=== PATIENT | male | born 1965 ===

== ENCOUNTER 2020-10-09 06:54 | Outpatient (REF) | payer OTHER, SELFPAY | END 2020-10-09 06:55 | disposition home or self-care (01) | LOC: HO.LAB 06:54 | PROVIDERS: Visit Provider Internal Medicine | DX: Z20.828 Contact with and (suspected) exposure to other viral communicable diseases (principal) | CPT/HCPCS: C9803; U0003 ==

== ENCOUNTER → 2021-10-16 09:22 | Outpatient (BNVA) | payer OTHER, SELFPAY | PROVIDERS: Visit Provider Physician Assistant | DX: M76.62 Achilles tendinitis, left leg (principal) | CPT/HCPCS: 73610; 99203 ==

== ENCOUNTER → 2021-10-24 09:58 | Outpatient (BNVA) | payer OTHER, SELFPAY | PROVIDERS: Visit Provider Physician Assistant | DX: S86.012A Strain of left Achilles tendon, initial encounter (principal); X58.XXXA Exposure to other specified factors, initial encounter | CPT/HCPCS: 99213 ==

== ENCOUNTER → 2021-10-30 10:42 | Outpatient (BNVA) | payer OTHER, SELFPAY | PROVIDERS: Visit Provider Physician Assistant | DX: S86.012A Strain of left Achilles tendon, initial encounter (principal); X58.XXXA Exposure to other specified factors, initial encounter | CPT/HCPCS: 99213 ==

== ENCOUNTER 2021-11-05 08:03 | Outpatient (REF) | payer OTHER, SELFPAY ==
--- NOTE | ~2021-11-05 | MR_ITS ---
EXAMINATION: MRI ANKLE WITHOUT CONTRAST, LEFT CLINICAL INFORMATION: Old left Achilles, pain, improvement. Rule out tear. COMPARISON: X-rays 10/16/2021 TECHNIQUE: MRI of the ankle without contrast is performed in a 1.5 [employer]ana high-field scanner. FINDINGS: ACHILLES TENDON: There is mild T2 signal in the distal Achilles tendon, suggesting mild tendinosis. There may be a thin linear longitudinal propagating interstitial tear in the central aspect of the tendon. Possible additional small interstitial tears in the distal tendon. No full-thickness tear is seen. There is mild peritendinitis distally.. Small retrocalcaneal bursitis. Mild edema in the posterior calcaneus. BONE/JOINTS: No evidence of fracture. No talar dome osteochondral lesion seen. MUSCLES/TENDONS: Mild T2 signal in the distal posterior tibial tendon may reflect mild tendinosis. Physiological fluid versus mild tenosynovitis of the posterior tibial tendon. The flexor tendons otherwise are intact. Peroneal, extensor tendons are intact. LIGAMENTS: Grade 2 sprain ATFL. Sprain posterior talofibular ligament. Tibiofibular, calcaneofibular ligaments intact. Mild heterogeneous signal in the deep fibers deltoid ligament could represent sprain. PLANTAR FASCIA: Intact. SINUS TARSI: Normal signal. TARSAL TUNNEL : No mass lesion SUBCUTANEOUS SOFT TISSUES: Mild lateral subcutaneous edema.. MR/MR ankle LT wo con IMPRESSION: 1. Findings suggest mild tendinosis of the distal Achilles tendon with mild peritendinitis. Possible thin linear longitudinal propagating interstitial tear in the distal tendon, with question of additional small interstitial tear distally. Small retrocalcaneal bursitis. Mild edema in the posterior calcaneus. 2. Possible mild distal posterior tibial tendinosis with physiological fluid versus mild tenosynovitis. 3. Grade 2 sprain ATFL. Sprain posterior talofibular ligament. Possible sprain deep fibers deltoid ligament.
== END 2021-11-05 08:04 | disposition home or self-care (01) ==
LOC: HO.MRI 08:03
PROVIDERS: Visit Provider Internal Medicine
DX: M25.572 Pain in left ankle and joints of left foot (principal)
CPT/HCPCS: 73721

== ENCOUNTER 2024-09-12 08:30 | Emergency (ER) | payer BC, SELFPAY ==
--- NOTE | ~2024-09-12 | US_ITS ---
EXAMINATION: US TRIPLEX LOWER EXTREMITY, LEFT CLINICAL INFORMATION: Swelling and pain COMPARISON: None available. TECHNIQUE: Color-flow triplex imaging with spectral analysis and compression Doppler were performed on the left lower extremity. FINDINGS: Respiratory variation, normal compression and augmented flow are noted throughout the left lower extremity. The visualized common femoral vein, superficial femoral vein, profunda femoral vein, popliteal vein and midcalf peroneal and posterior tibial venous segments show no evidence of deep venous thrombosis. There is some calf edema noted. There is a left inguinal noted 21 x 6 x 7 mm. There is no Hensley's cyst. US/US venous duplex LE LT IMPRESSION: No evidence of deep venous thrombosis involving the left lower extremity. Electronically signed by: Dustin Cunningham MD 09/12/2024 11:18 AM [facility]
[2024-09-12 08:40] VITALS: BP 147/85; PULSE 70; RESP 18; TEMP 36.6; O2SAT 99; BMI 25.1
[2024-09-12 09:03] LABS: MANUAL DIFF FLAG NO
[2024-09-12 09:04] LABS: Basophils Percent Auto 0.4 % (0-2); Eosinophils Absolute Auto 0.3 X10*3/uL (0.0-0.4); Eosinophils Percent Auto 3.7 % (0-4); Hematocrit 38.1 % (42.0-52.0); Hemoglobin 13.2 g/dl (14.0-18.0); Imm Gran Abs Auto 0.02 X10*3/uL (0.00-0.03); Imm Gran Pct Auto 0.3 % (0.0-0.4); Lymphocytes Absolute Auto 1.6 X10*3/uL (1.2-4.9); Lymphocytes Percent Auto 23.2 % (20-40); Mean Corpuscular HGB Conc 34.6 g/dl (31.0-36.0); Mean Corpuscular Hemoglobin 32.2 pg (27.0-33.0); Mean Corpuscular Volume 92.9 fL (80.0-98.0); Mean Platelet Volume 9.5 fL (9.4-12.4); Monocytes Absolute Auto 0.8 X10*3/uL (0.1-1.2); Monocytes Percent Auto 11.4 % (2-11); Neutrophils Absolute Auto 4.1 x10*3/uL (2.0-8.3); Platelet Count 255 X10*3/uL (160-400); Red Cell Distribution Width 14.6 % (11.0-16.0); White Blood Count 6.8 X10*3/uL (4.8-10.8)
[2024-09-12 09:10] LABS: Prothrombin Time 11.5 SEC (10.9-12.4)
[2024-09-12 09:25] LABS: Alanine Aminotransferase 102 U/L (0-40); Albumin Level 4.1 g/dL (3.5-5.0); Alkaline Phosphatase 44 U/L (39-117); Anion Gap 10 (12-20); Aspartate Amino Transferase 102 U/L (5-37); Bilirubin Total 0.8 mg/dL (0.0-1.0); Blood Urea Nitrogen 20 mg/dL (9-16); Calcium 9.5 mg/dL (8.4-10.2); Carbon Dioxide 30 mmol/L (22-29); Chloride 101 mmol/L (96-108); Creatinine Clr Calc Pharmacy 84.2; Estimated Glomerular Filt Rate > 60; Glucose Random 90 mg/dL (60-115); Potassium 4.4 mmol/L (3.3-5.1); Sodium 137 mmol/L (135-145); Total Protein 7.3 g/dL (6.5-8.0)
--- NOTE | 2024-09-12 09:32 | ED.LOWEXIN ---
HPI - Extremity Injury (Lower) General Chief Complaint: Extremity Injury, Lower Stated Complaint: Swelling/bruising L leg Time Seen by Provider: 09/12/24 09:16 Source: patient Mode of arrival: ambulatory Limitations: no limitations History of Present Illness ED Provider: JENNI SHEN PA-C HPI Narrative: 59 year old male with no significant past medical history presents to the ED today for evaluation of pain and swelling to his LLE x2-3 weeks. States a few days ago he was walking down the stairs and felt a pop to the outside of his left knee. Denies any blunt trauma or injury to the leg/ knee. Admits to history of spider veins in the LLE. He is not on anticoagulation. Denies recent travel or long car rides. Denies personal history of VTE. Admits his mother has history of VTE and heart issues . Denies fever, chills, chest pain, palpitations, sob, dyspnea, cough, hemoptysis. Related Data Previous Rx's ?Medication ?Instructions ?Recorded compr.stocking,knee,long,large #12 ea 09/12/24 Allergies Allergy/AdvReac Type Severity Reaction Status Date / Time No Known Allergies Allergy Verified 09/12/24 08:42 [No Known Allergies*] Review of Systems Review of Systems: Constitutional: No fever, chills, fatigue, night sweats, weight changes ENT/Mouth: No ear pain, hearing loss, nasal congestion, sinus pain, rhinorrhea, sore throat Eyes: No eye pain, swelling, redness, vision changes, discharge Cardio: No chest pain, palpitations, CARRENO, orthopnea, peripheral edema Pulm: No SOB, cough, sputum, wheezing, dyspnea, hemoptysis GI: No nausea, vomiting, hematemesis, abdominal pain, diarrhea, constipation, hematochezia, melena : No irregular bleeding, dysuria, frequency, urgency, hesitancy, hematuria, flank pain, urinary flow changes, urinary incontinence or retention MSK: No back pain, neck pain, joint pain, myalgias, +LLE pain/ swelling Skin: No lesions, rashes Neuro: No weakness, numbness, paresthesias, LOC, dizziness, headache Psych: No anxiety/panic, depression, SI/HI, AH/VH All other systems reviewed and are negative. [facility] Past Medical History Attestation statement: The following information was validated with the patient. Source: old records reviewed and nursing notes reviewed Medical History (Updated 09/12/24 @ 11:33 by SHEA Deluna) Leg edema, left Social History Social History Advance Directives: No Physical Exam Vital Signs: Vital Signs: Last Vital Signs Temp 99.1 F 09/12/24 11:10 Pulse 68 09/12/24 11:10 Resp 16 09/12/24 11:10 BP 137/87 09/12/24 11:10 Pulse Ox 99 09/12/24 08:40 O2 Del Method Room Air 09/12/24 11:10 BMI result Body Mass Index 25.1 hypertensive, vitals otherwise wnl General: Well appearing, in no acute distress. Skin: Warm, dry, intact. No rashes or lesions. Head: Normocephalic, atraumatic. EENT: Hearing is intact b/l. Conjunctiva clear. PERRLA. EOM intact. Moist mucous membranes.? Cardiac: Chest wall symmetric. RRR. Lungs: Normal respiratory effort without accessory muscle use. CTA bilaterally. No rales, rhonchi, or wheezes.? Abdomen: Soft, non-tender, non-distended. No rebound tenderness or guarding. Positive BS x4. Back: No midline spinous or paraspinal tenderness. No step off deformity. Ext: + 2+ pitting edema noted to LLE when compared to RLE. minimal ecchymosis noted to medial aspect of LLE with scattered spider veins. no obvious larger varicose veins. no calf tenderness. no joint tenderness or deformities. ambulating w/ steady gait. negative anterior/ posterior drawer test. FROM intact to left hip, knee, ankle, and toes. 2+ pt/ dp pulse intact. Neuro: AOx3. Normal speech.Strength 5/5 intact throughout. No saddle anesthesia. Sensation intact to light touch. NV intact distally. Psych: Appropriate mood and affect. Responds appropriately to questions. Course Course Course Narrative: 1022 -- CBC without leukocytosis or left shift. Slight normocytic anemia. No priors to compare to. H&H above transfusion threshold. Coags WNL. Chemistry without acute electrolyte abnormality requiring intervention. BUN slightly elevated to 20 however creatinine WNL. BNP wnl > CHF unlikely. > venous duplex pending however I have low suspicion for DVT. likely dependent edema in conjunction w/ spider veins. 1129 -- venous duplex negative for DVT. No Hensley's cyst. Concern for dependent edema. Will send compression stocking to pharmacy. Educated on elevating left leg. Advised to follow up with PCP. Will provide referrals to a new one. Patient has remained stable throughout ED visit today. Discussed worrisome signs and symptoms and when to return to the ED. All questions answered at this time. Patient is agreeable with disposition and stable for discharge. Medical Decision Making Medical Decision Making [facility] Narrative: 59 year old male with no significant past medical history presents to the ED today for evaluation of pain and swelling to his LLE x2-3 weeks. He is hypertensive. Vitals otherwise wnl. Not hypoxic or tachycardic. On exam, there is 2+ pitting edema noted to LLE when compared to RLE. minimal ecchymosis noted to medial aspect of LLE with scattered spider veins. no obvious larger varicose veins. no calf tenderness. no joint tenderness or deformities. ambulating w/ steady gait. negative anterior/ posterior drawer test. FROM intact to left hip, knee, ankle, and toes. 2+ pt/ dp pulse intact. Lungs are clear. No crackles. No JVD. Differential diagnosis includes anemia, electrolyte abnormality, dependent edema, DVT, hensley's cyst, CHF, arthritis. I do not have suspicion for acute arterial occlusion, NV compromise, threat to limb, or compartment syndrome, ligament/ tendon injury, fracture. Plan for labs, venous duplex, re-evaluation. Differential Diagnosis Differential Diagnoses: The differential diagnosis associated with the presentation includes as above. Admission/Observation Not indicated. Lab Data [facility] Lab Attestation statement: I reviewed the patient's lab results. as above. 09/12/24 08:58 09/12/24 08:58 Labs: Lab Results 09/12/24 Range/Units 08:58 WBC 6.8 (4.8-10.8) X10*3/uL RBC 4.10 L (4.60-5.80) X10*6/uL Hgb 13.2 L (14.0-18.0) g/dl Hct 38.1 L (42.0-52.0) % MCV 92.9 (80.0-98.0) fL MCH 32.2 (27.0-33.0) pg MCHC 34.6 (31.0-36.0) g/dl RDW 14.6 (11.0-16.0) % Plt Count 255 (160-400) X10*3/uL MPV 9.5 (9.4-12.4) fL Immature Gran % (Auto) 0.3 (0.0-0.4) % Neut % (Auto) 61.0 (45-73) % Lymph % (Auto) 23.2 (20-40) % [place] % (Auto) 11.4 H (2-11) % Eos % (Auto) 3.7 (0-4) % Baso % (Auto) 0.4 (0-2) % Lymph # (Auto) 1.6 (1.2-4.9) X10*3/uL [place] # (Auto) 0.8 (0.1-1.2) X10*3/uL Eos # (Auto) 0.3 (0.0-0.4) X10*3/uL Baso # (Auto) 0.0 (0.0-0.2) X10*3/uL Abs Immat Gran (auto) 0.02 (0.00-0.03) X10*3/uL Absolute Neuts (auto) 4.1 (2.0-8.3) x10*3/uL Absolute Nucleated RBC 0.000 (0.0-0.012) X10*3/uL Nucleated RBC % (auto) 0.0 (0.0-0.2) /100WBC PT 11.5 (10.9-12.4) SEC INR 1.0 (0.9-1.1) Sodium 137 (135-145) mmol/L Potassium 4.4 (3.3-5.1) mmol/L Chloride 101 (96-108) mmol/L Carbon Dioxide 30 H (22-29) mmol/L Anion Gap 10 L (12-20) BUN 20 H (9-16) mg/dL Creatinine 1.07 (0.5-1.4) mg/dL Estim Creat Clear Calc 84.2 Estimated GFR > 60 Random Glucose 90 (60-115) mg/dL Calcium 9.5 (8.4-10.2) mg/dL Total Bilirubin 0.8 (0.0-1.0) mg/dL AST 102 H (5-37) U/L ALT 102 H (0-40) U/L Alkaline Phosphatase 44 (39-117) U/L B-Natriuretic Peptide < 10 (<100) pg/mL Total Protein 7.3 (6.5-8.0) g/dL Albumin 4.1 (3.5-5.0) g/dL Independent Interpretation I performed an independent interpretation of an: Ultrasound Interpretation: venous duplex LLE without clot or popliteal cyst Radiology Impression Discussion of test interpretation with radiology: I have reviewed the radiologist's reading. Radiologist Impression: EXAMINATION: US TRIPLEX LOWER EXTREMITY, LEFT CLINICAL INFORMATION: Swelling and pain COMPARISON: None available. TECHNIQUE: Color-flow triplex imaging with spectral analysis and compression Doppler were performed on the left lower extremity. FINDINGS: Respiratory variation, normal compression and augmented flow are noted throughout the left lower extremity. The visualized common femoral vein, superficial femoral vein, profunda femoral vein, popliteal vein and midcalf peroneal and posterior tibial venous segments show no evidence of deep venous thrombosis. There is some calf edema noted. There is a left inguinal noted 21 x 6 x 7 mm. There is no Hensley's cyst. US/US venous duplex LE LT IMPRESSION: No evidence of deep venous thrombosis involving the left lower extremity. Electronically signed by: Dustin Cunningham MD 09/12/2024 11:18 AM EST Prescription Management I considered prescription management with: Other (compression stockings) Social Determinants Patient?s care significantly limited by Social Determinants of Health including: Other Social Determinant of Health Critical Care Time Critical Care Time Critical Care Time: No Discharge Plan Discharge Clinical Impression: Leg edema, left Patient Disposition: Home, Self-Care Instructions: Leg Edema (ED) Additional Instructions: Your blood work today is reassuring. The ultrasound of your left leg does not demonstrate clot or cyst. I have sent a compression stocking to your pharmacy. Wear this daily, especially when you are standing for long periods of time at work. This will help with swelling/discomfort. Continue taking Motrin at home as needed. Follow up with your primary care provider. You have also been provided with a referral to a new one. Call them to establish care. They will not call you. Return with new or worsening symptoms. In the case of an emergency call 911. Prescriptions: New (DME) compr.stocking,knee,long,large Misc See Rx Instructions .Route Qty: 12 0RF Rx Instructions: As directed Referrals: [facility] [place]] [facility]Provider Group] [facility]ignesh [Provider Group] Dimas Lopez MD [Primary Care Provider] - Stand Alone Forms: Work/School Release Print Language: Luxembourgish
[2024-09-12 10:10] LABS: B Type Natriuretic Peptide < 10 pg/mL (<100)
[2024-09-12 11:10] VITALS: BP 137/87; PULSE 68; RESP 16; TEMP 37.3
[2024-09-12 11:40] VITALS: BP 137/87; PULSE 68; RESP 16; TEMP 37.3
== END 2024-09-12 11:41 | disposition home or self-care (01) ==
PROVIDERS: Physician Assistant Medical; Emergency Provider Emergency Medicine; PCP Family Medicine
DX: R60.0 Localized edema (principal); Z79.899 Other long term (current) drug therapy
CPT/HCPCS: 36415; 80053; 83880; 85025; 85610; 93971; 99283; 99284